=== PATIENT | male | born 1960 | race Caucasian/White ===

== ENCOUNTER 2017-03-13 18:56 | Emergency (ER) | END 2017-03-13 19:20 | disposition left against medical advice (07) ==

== ENCOUNTER 2017-10-10 20:48 | Emergency (ER) | END 2017-10-11 00:50 | disposition home or self-care (01) ==

== ENCOUNTER 2018-03-22 18:46 | Emergency (ER) | payer OTHER ==
[~2018-03-22] VITALS: Ht 175.3 cm; Wt 95.9 kg
[~2018-03-22 18:46] MED LIST: ACET-1145 PO; ASPI-903 PO; ATEN50TA PO; CLON0.2T5 PO; GABA-528 PO; GLIP10TA14 PO; IBUP-1542 PO; METF-480 PO; OMEG1CAP2 PO; OXYC-281 PO; PANT40TA4 PO; TRAM50TA2 PO
[2018-03-22 18:51] VITALS: Ht 175.3 cm; Wt 95.9 kg
--- NOTE | 2018-03-22 19:32 | ERD ---
ER Documentation Chief Complaint Chief Complaint STATES LOW BP AT HOME 70/42 HPI This is a 57-year-old male with a prior history of diabetes, prior history of kidney disease, presents for evaluation of dizziness and hypotension. The patient states that he has not been drinking much water the last few days, after he felt dizzy he went about 520 ounce bottles of Dasani. He denies chest pain or shortness of breath. ROS All systems reviewed and are negative except as per history of present illness. Medications Home Meds Active Scripts Ibuprofen* (Motrin*) 600 Mg Tab, 600 MG PO Q6, #30 TAB Prov:PEDRO ONTIVEROS PA-C 10/11/17 Tramadol HCl (Tramadol HCl) 50 Mg Tablet, 50 MG PO Q6 PRN for PAIN, #7 TAB Prov:ANKUR MASSEY MD 05/19/15 Ibuprofen* (Motrin*) 600 Mg Tab, 600 MG PO Q6H PRN for PAIN AND OR ELEVATED TEMP, #30 TAB Prov:ANKUR MASSEY MD 05/19/15 Oxycodone Hcl-Acetaminophen* (Percocet*) 5-325 Mg Tablet, 1 TAB PO Q4H PRN for PAIN, #30 TAB Prov:CHELSEY MORRIS 05/09/15 Ibuprofen* (Ibuprofen*) 600 Mg Tablet, 600 MG PO TID for PAIN, #30 TAB Prov:JANUSZ GRIFFIN MD 05/04/15 Oxycodone Hcl-Acetaminophen* (Percocet*) 5-325 Mg Tablet, 1 TAB PO TID PRN for PAIN, #12 TAB Prov:JANUSZ GRIFFIN MD 05/04/15 Acetaminophen-Codeine (Tylenol With Codeine #3 Tablet) 300-30 Mg Tablet, 1 TAB PO Q4H PRN for PAIN, #14 TAB Prov:ANGELICA WASHINGTON DO 04/24/15 Reported Medications Aspirin* (Aspirin* Chew) 81 Mg Tab.chew, 81 MG PO DAILY, TAB.CHEW 08/06/14 [place]-3 Acid Ethyl Esters (Lovaza) 1 Gm Capsule, 2 GM PO BID, CAP 08/06/14 Pantoprazole* (Pantoprazole*) 40 Mg Tablet.dr, 40 MG PO AC BREAKFAST, TAB 08/06/14 Gabapentin* (Gabapentin*) 800 Mg Tablet, 800 MG PO QID, TAB 06/09/14 Glipizide* (Glipizide*) 10 Mg Tablet, 20 MG PO BID, TAB 06/09/14 Metformin* (Glucophage*) 850 Mg Tablet, 850 MG PO TID, TAB 06/09/14 Clonidine Hcl* (Clonidine Hcl*) 0.2 Mg Tablet, 0.2 MG PO Q12, TAB 06/09/14 Atenolol* (Atenolol*) 50 Mg Tablet, 50 MG PO BID, TAB 06/09/14 Allergies Allergies: Coded Allergies: gemfibrozil (Verified Allergy, Unknown, 05/19/14) Uncoded Allergies: HYPERLIPIDEMIA MEDICATIONS (Allergy, Unknown, 04/10/14) PMhx/Soc History of Surgery: Yes (BILAT HERNIA REPAIR, B BUNION) Anesthesia Reaction: No Hx Neurological Disorder: No Hx Respiratory Disorders: No Hx Cardiac Disorders: Yes (HTN) Hx Psychiatric Problems: No Hx Miscellaneous Medical Probl: No (HLD, DM, DIABETIC NEUROPATHY) Hx Alcohol Use: Yes (RARE) Hx Substance Use: No Hx Tobacco Use: Yes (5 CIGS/DAY) Physical Exam Vitals Vital Signs Date Temp Pulse Resp B/P (MAP) Pulse Ox O2 O2 Flow FiO2 Time Delivery Rate 03/22/18 97.7 74 20 134/86 99 Room Air 22:47 (102) 03/22/18 70 16 113/77 96 Room Air 19:39 (89) 03/22/18 99/52 (68) 19:22 03/22/18 97.7 82 19 98/56 (70) 96 18:51 Physical Exam Const: No acute distress Head: Atraumatic Eyes: Normal Conjunctiva ENT: Normal External Ears, Nose and Mouth. Neck: Full range of motion. No meningismus. Resp: Clear to auscultation bilaterally Cardio: Regular rate and rhythm, no murmurs Abd: Soft, non tender, non distended. Normal bowel sounds Skin: No petechiae or rashes Back: No midline or flank tenderness Ext: No cyanosis, or edema Neur: Awake and alert Psych: Normal Mood and Affect Result Diagram: 03/22/18194503/22/181945 Results 24 hrs Laboratory Tests Test 03/22/18 19:45 03/22/18 19:46 Urine Color YELLOW Urine Clarity SLIGHTLY CLOUDY Urine pH 5.0 Urine Specific [place] 1.020 Urine Ketones TRACE mg/dL Urine Nitrite NEGATIVE mg/dL Urine Bilirubin 1+ mg/dL Urine Urobilinogen 2+ mg/dL Urine Leukocyte Esterase NEGATIVE Farzana/ul Urine Microscopic RBC 0 /HPF Urine Microscopic WBC 4 /HPF Urine Squamous Epithelial Cells FEW /HPF Urine Mucus FEW /HPF Urine Hemoglobin NEGATIVE mg/dL Urine Glucose NEGATIVE mg/dL Urine Total Protein NEGATIVE mg/dl White Blood Count 7.7 10^3/ul Red Blood Count 4.30 10^6/ul Hemoglobin 12.3 g/dl Hematocrit 36.3 % Mean Corpuscular Volume 84.4 fl Mean Corpuscular Hemoglobin 28.6 pg Mean Corpuscular Hemoglobin Concent 33.9 g/dl Red Cell Distribution Width 13.2 % Platelet Count 181 10^3/UL Mean Platelet Volume 11.5 fl Immature Granulocytes % 0.100 % Neutrophils % 52.5 % Lymphocytes % 32.8 % Monocytes % 11.9 % Eosinophils % 2.3 % Basophils % 0.4 % Nucleated Red Blood Cells % 0.0 /100WBC Immature Granulocytes # 0.010 10^3/ul Neutrophils # 4.1 10^3/ul Lymphocytes # 2.5 10^3/ul Monocytes # 0.9 10^3/ul Eosinophils # 0.2 10^3/ul Basophils # 0.0 10^3/ul Nucleated Red Blood Cells # 0.0 10^3/ul Sodium Level 133 mmol/L Potassium Level 4.4 mmol/L Chloride Level 96 mmol/L Carbon Dioxide Level 26 mmol/L Anion Gap 11 Blood Urea Nitrogen 40 mg/dl Creatinine 2.27 mg/dl Est Glomerular Filtrat Rate mL/min 30 mL/min Glucose Level 203 mg/dl Calcium Level 9.1 mg/dl Procedures/MDM 57-year-old well-appearing male presents for evaluation of low blood pressure taken at home, multiple blood pressures taken in the ED were above 90 systolic, I ordered a basic lab panel, and noted that he had a BUN of 40 with a creatinine of 2.27, this is significantly elevated from a year ago. The patient states that his creatinine has been elevated in the past, but not this high, I definitely suspect an element of prerenal volume depletion, however given his history of diabetes, progression to chronic kidney disease is also concerned. I offered the patient admission for further workup and evaluation, he stated that he had a follow-up lab appointment this week, and preferred to have the workup done as an outpatient, currently he feels well, he is urinating, is in no acute distress, he is also tolerating oral intake, I did encourage adequate fluid intake, patient agreed to this, at discharge she was in no acute distress per Departure Diagnosis: Primary Impression: Hypotension Hypotension type: unspecified hypotension type Qualified Codes: I95.9 - Hypotension, unspecified Additional Impression: Acute kidney injury JANUSZ NIXON MD Mar 22, 2018 19:32
[2018-03-22 22:47] VITALS: BP 134/86; PULSE 74; RESP 20
== END 2018-03-22 22:56 | disposition home or self-care (01) ==
LOC: E/R 18:46
DX: I95.9 Hypotension, unspecified (principal); N17.9 Acute kidney failure, unspecified; E11.9 Type 2 diabetes mellitus without complications; F17.210 Nicotine dependence, cigarettes, uncomplicated; I10 Essential (primary) hypertension; Z79.82 Long term (current) use of aspirin; Z79.84 Long term (current) use of oral hypoglycemic drugs
CPT/HCPCS: 80048; 81001; 85025; Z7502; 81003; 99283